=== PATIENT | female | born 2000 | race African-American/Black ===

== ENCOUNTER 2019-05-14 13:49 | Emergency (ER) | payer SELFPAY ==
[2019-05-14 14:01] VITALS: BP 102/76; PULSE 94; TEMP 98.5; BMI 23.0
[2019-05-14] MEDS ORDERED: ONDANSETRON *ODT* 4 MG TABLET SL ONE (14:01)
--- NOTE | 2019-05-14 14:01 | PDOC ---
Rapid Medical Evaluation Time Seen by Provider: 05/14/19 13:57 Medical Evaluation: Allergies Allergy/AdvReac Type Severity Reaction Status Date / Time No Known Allergies Allergy Verified 11/13/14 10:41 05/14/19 14:00 This patient had a brief in-person evaluation in triage CC: nausea, vomiting, frequency in urination, lightheadedness and rash since last night. Reports missed menses PE:received in wheelchair rash on upper chest + tenderness of entire lower abdomen orders: urine , antiemetic This patient will proceed to the ED for further evaluation Discharge Disposition - Diagnosis Nausea - Referrals - Patient Instructions - Post Discharge Activity
[2019-05-14] MEDS ORDERED: ONDANSETRON *ODT* 4 MG TABLET ONE (15:31)
--- NOTE | 2019-05-14 15:35 | PDOC ---
History of Present Illness - General Chief Complaint: Vomiting/Diarrhea Stated Complaint: ABD PAIN Time Seen by Provider: 05/14/19 13:57 History Source: Patient Exam Limitations: No Limitations - History of Present Illness Initial Comments: 05/14/19 15:28 18 yo F with no past medical history presents to the emergency department with diarrhea, nausea, and intermittent abdominal cramping. Per the patient, she had diarrhea with 12+ episodes without hematochezia Past History - Past Medical History Allergies/Adverse Reactions: Allergies Allergy/AdvReac Type Severity Reaction Status Date / Time No Known Allergies Allergy Verified 05/14/19 14:01 Home Medications: Ambulatory Orders NK [No Known Home Medication] 11/13/14 COPD: No - Immunization History Immunization Up to Date: Yes - Suicide/Smoking/Psychosocial Hx Smoking History: Never smoked Have you smoked in the past 12 months: No Information on smoking cessation initiated: No Hx Alcohol Use: No Drug/Substance Use Hx: No Substance Use Type: None *Physical Exam - Vital Signs Last Vital Signs Temp Pulse Resp BP Pulse Ox 98.5 F 94 H 16 102/76 100 05/14/19 13:59 05/14/19 13:59 05/14/19 13:59 05/14/19 13:59 05/14/19 13:59 ED Treatment Course - LABORATORY CBC & Chemistry Diagram: 05/14/19 15:10 05/14/19 15:10 *DC/Admit/Observation/Transfer Diagnosis at time of Disposition: Nausea - Discharge Dispostion Disposition: HOME Decision to Admit order: No - Referrals Referrals: [facility] [Provider Group] - Patient Instructions Printed Discharge Instructions: DI for Nausea -- Adult, DI for Abdominal Pain- Adult Additional Instructions: You were seen for the evaluation of our nausea, vomiting, diarrhea, and abdominal cramping. You improved with medication and your labs were within normal limits. Please follow up with your primary medical doctor within 1 week after discharge for follow up care and management. Thank you. Please return to the emergency department if you have worsening symptoms or new concerning symptoms such as localization of pain, fevers, vaginal discharge, and vomiting. Thank you. - Post Discharge Activity Forms/Work/School Notes: Back to Work
[2019-05-14] MEDS ORDERED: SODIUM CHLORIDE 0.9% 500 ML INFUS.BAG IV ONE (15:50)
--- NOTE | 2019-05-14 16:20 | PDOC ---
Documentation entered by Ritesh Kaufman SCRIBE, acting as scribe for Simba Lopez MD. Simba Lopez MD: This documentation has been prepared by the Mandeep garduno Elijah, SCRIBE, under my direction and personally reviewed by me in its entirety. I confirm that the documentation accurately reflects all work, treatment, procedures, and medical decision making performed by me. Attending Attestation - Resident Resident Name: [email or web address] - ED Attending Attestation I have performed the following: I have examined & evaluated the patient, The case was reviewed & discussed with the resident, I agree w/resident's findings & plan - HPI HPI: 05/14/19 15:41 Patient is a 18 year old female with no past medical history who presents to the ED with x1 day of diarrhea. Patient associates Nausea and vomiting for x3 weeks, her LMP was x3 weeks ago and notes that her symptoms improve when she sleeps. Denies Hematochezia Allergies: NKA - Physicial Exam PE: 05/14/19 16:18 Patient is awake and alert, well-nourished, in no distress Normocephalic and atraumatic PERRLA, EOMI No scleral icterus No JVD CTA RRR Abdomen soft, nondistended, mild right lower quadrant, periumbilical left lower quadrant tenderness is noted No CVA tenderness - Medical Decision Making 05/14/19 16:20 18-year-old female presents with several episodes of loose watery stools, nausea , vomiting and crampy predominantly lower abdominal pain. Patient reports that her LMP is 3 weeks late. Will rule out with beta-hCG. Will obtain CBC/ CMP to evaluate for electrolyte abnormalities. Will hydrate. Will reassess
[2019-05-14 17:54] LABS: BASO % 0.1 % (0-2.0); EOS % 2.2 % (0-4.5); HEMATOCRIT 31.8 % (32.4-45.2); HEMOGLOBIN 10.1 GM/dL (10.7-15.3); LYMPH % 11.2 % (8-40); MCH 25.6 pg (25.7-33.7); MCHC 31.6 g/dl (32.0-36.0); MEAN CELL VOLUME 80.9 fl (80-96); MEAN PLT VOLUME 9.4 fl (7.5-11.1); MONO % 6.2 % (3.8-10.2); NEUT % 80.3 % (42.8-82.8); PLATELET COUNT 348 K/MM3 (134-434); RBC 3.93 M/mm3 (3.60-5.2); RDW 16.2 % (11.6-15.6); WHITE BLOOD COUNT 9.8 K/mm3 (4.0-10.0)
[2019-05-14 18:05] LABS: URINE APPEARANCE CLEAR; URINE BILIRUBIN NEGATIVE (NEGATIVE); URINE COLOR YELLOW; URINE GLUCOSE (UA) NEGATIVE (NEGATIVE); URINE KETONE NEGATIVE (NEGATIVE); URINE LEUK ESTERASE NEGATIVE (NEGATIVE); URINE NITRITE NEGATIVE (NEGATIVE); URINE PROTEIN NEGATIVE (NEGATIVE); URINE UROBILINOGEN 0.2 mg/dL (0.2-1.0)
[2019-05-14 18:08] LABS: ALBUMIN 3.8 g/dl (3.4-5.0); BILIRUBIN,TOTAL 0.6 mg/dL (0.2-1); BLOOD UREA NITROGEN 9.9 mg/dL (7-18); CALCIUM 8.8 mg/dL (8.5-10.1); CREATININE 0.7 mg/dL (0.55-1.3); POTASSIUM 4.4 mmol/L (3.5-5.1); TOT PROT 8.2 g/dl (6.4-8.2)
== END 2019-05-14 18:59 | disposition home or self-care (01) ==
LOC: JER 13:49
PROC: 3E0333Z Introduction of Anti-inflammatory into Peripheral Vein, Percutaneous Approach (ICD-10-PCS; principal; 2019-05-14)
DX: R11.0 Nausea (principal)
CPT/HCPCS: 36415; 80053; 81003; 84703; 85025; 87086; 99281-25; Q0162